=== PATIENT | female | born 1985 | race American Indian/Alaskan Native ===

== ENCOUNTER 2017-10-05 13:51 | Emergency (ER) | payer OTHER ==
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
[2017-10-05 18:23] VITALS: BP 120/80
== END 2017-10-05 18:22 | disposition home or self-care (01) ==
LOC: ED 13:51
DX: M54.9 Dorsalgia, unspecified (principal); V89.2XXA Person injured in unspecified motor-vehicle accident, traffic, initial encounter; Y93.89 Activity, other specified; Y99.8 Other external cause status; Y92.410 Unspecified street and highway as the place of occurrence of the external cause
CPT/HCPCS: 99282